=== PATIENT | female | born 1990 | race Caucasian/White ===

== ENCOUNTER 2020-11-09 17:56 | Inpatient (IN) ==
[2020-11-09] MEDS ORDERED: Lactated Ringers 1000 ml BAG 1,000 ML IV ONE (18:59)
[2020-11-09] MEDS ORDERED: Buffered Lidocaine 1% SYRIN 1 ml INTRADERM ONE (18:59)
[2020-11-09] MEDS ORDERED: Dinoprostone 10 MG VAG.SUPP VAGINAL ONE (18:59)
[2020-11-09] MEDS ORDERED: Lactated Ringers 1000 ml BAG 1,000 ML IV SCH (19:00)
[2020-11-09 21:33] LABS: Urine Benzodiazepine Screen None Detected (None Detect); Urine Cannabinoids Screen None Detected (None Detect); Urine Opiates Screen None Detected (None Detect)
[2020-11-10] MEDS ORDERED: Oxytocin in LR 20 UNITS/1,000 ML BAG IVPB SCH (10:00)
[2020-11-10 10:15] LABS: ABS Basophils 0.1 10^3/ul (0-0.2); ABS Eosinophils 0.1 10^3/ul (0-0.6); ABS Lymphocytes 2.2 10^3/ul (1.0-4.8); ABS Monocytes 0.8 10^3/ul (0-0.8); ABS Neutrophils 10.6 10^3/ul (1.5-7.7); Eosinophil % 1.1 %; Hematocrit 38 % (35-47); Hemoglobin 12.6 g/dL (12.0-16.0); Lymphocyte % 16.3 %; Mean Corpuscular HGB Conc 33 g/dL (31-36); Mean Corpuscular Hemoglobin 29 pg (27-31); Mean Corpuscular Volume 87 fL (80-97); Mean Platelet Volume 9.1 fL (7.4-10.4); Platelet Count 245 10^3/uL (150-450); Red Blood Count 4.36 10^6 /uL (3.70-4.87); Red Cell Distribution Width 14 % (10-15); White Blood Count 13.8 10^3/uL (3.5-10.8)
[2020-11-10] MEDS ORDERED: OBEPIDURAL 250 ML EPIDURAL ONE (13:40)
[2020-11-10] MEDS ORDERED: Bupivacaine 0.25% SDV PF 10 ML VIAL INJ ONE (13:42)
[2020-11-10] MEDS ORDERED: Lactated Ringers 1000 ml BAG 1,000 ML IV ONE (14:08)
[2020-11-10] MEDS ORDERED: Sodium Citrate/Citric Acid LIQ 15 ML UDC PO PRN (14:08)
[2020-11-10] MEDS ORDERED: Phenylephrine 40 mcg/mL 10mL (400mcg) SYRINGE IV PUSH PRN ×2 (14:08)
[2020-11-10] MEDS ORDERED: OBEPIDURAL 250 ML EPIDURAL SCH (15:00)
[2020-11-10] MEDS ORDERED: Lactated Ringers 1000 ml BAG 1,000 ML IV SCH (15:00)
[2020-11-10 17:11] LABS: Urine Appearance Clear; Urine Bilirubin Negative (Negative); Urine Blood 1+ (Negative); Urine Color Straw; Urine Glucose Negative (Negative); Urine Ketones Negative (Negative); Urine Nitrite Negative (Negative); Urine Protein Negative (Negative); Urine Specific Gravity 1.003 (1.002-1.030); Urine Urobilinogen Negative (Negative)
[2020-11-10 17:16] LABS: Urine Bacteria Absent (Absent); Urine Red Blood Cell Absent (Absent); Urine White Blood Cell Absent (Absent)
[2020-11-10] MEDS: Calcium Carb (TUMS) 500 mg CHEW TAB PO PRN (23:00)
[2020-11-11] MEDS: Calcium Carb (TUMS) 500 mg CHEW TAB PO PRN (06:26)
[2020-11-11] MEDS ORDERED: OBEPIDURAL 250 ML EPIDURAL ONE (06:59)
[2020-11-11] MEDS ORDERED: Lidocaine 2% w/ EPI 1:200,000 MPF 20 ML SDV VIAL ONE (07:00)
[2020-11-11] MEDS ORDERED: ceFOXitin 2 GM IVPREMIX 2 GM/50 ML BAG IVPB ONE (08:31)
[2020-11-11] MEDS ORDERED: ceFOXitin 2 GM IVPREMIX 2 GM/50 ML BAG ONE (08:34)
[2020-11-11] MEDS ORDERED: Morphine PF AMP (0.5MG/ML) 5 MG/10 ML AMP ONE (08:51)
[2020-11-11] MEDS ORDERED: Oxytocin 10 UNITS/ML 1 ML VIAL ONE (08:51)
[2020-11-11] MEDS ORDERED: Phenylephrine 40 mcg/mL 10mL (400mcg) SYRINGE ONE (08:51)
[2020-11-11] MEDS ORDERED: Ondansetron 4 mg VIAL 2 MG/ML 2 ml VIAL ONE (09:22)
[2020-11-11] MEDS ORDERED: Carboprost Tromethamine 250 mcg 1 ml VIAL ONE (09:42)
[2020-11-11] MEDS ORDERED: Midazolam 2 mg/2 ml VIAL 1 mg/ml 2 ml VIAL (2 mg) ONE (10:08)
[2020-11-11] MEDS ORDERED: Ondansetron 4 mg VIAL 2 MG/ML 2 ml VIAL IV PRN (10:31)
[2020-11-11] MEDS ORDERED: Acetaminophen IV 1 GM/100ML 1,000 MG/100 ML VIAL IVPB PRN (10:31)
[2020-11-11] MEDS ORDERED: DiMENhydriNATE IV 50 mg/ml 1 ml VIAL IV PUSH PRN (10:31)
[2020-11-11] MEDS ORDERED: diPHENhydraMINE IV 50 MG/ML 1 ml VIAL (BENADRYL) IV PRN (10:31)
[2020-11-11] MEDS ORDERED: Naloxone 0.4 mg VIAL 0.4 mg/ml 1 ml VIAL IV PRN (10:31)
[2020-11-11] MEDS ORDERED: Acetaminophen IV 1 GM/100ML 100 ML ONE (10:32)
[2020-11-11] MEDS ORDERED: Witch Hazel PAD JAR TOPICAL PRN (10:33)
[2020-11-11] MEDS ORDERED: Carboprost Tromethamine 250 mcg 1 ml VIAL IM ONE (10:33)
[2020-11-11] MEDS ORDERED: Dibucaine 1% OINT 28.35 GM TUBE PR PRN (10:33)
[2020-11-11] MEDS ORDERED: Glycerin ADULT 2.4 gm SUPP PR PRN (10:33)
[2020-11-11] MEDS ORDERED: Lactated Ringers 1000 ml BAG 1,000 ML IV SCH (11:00)
[2020-11-11] MEDS ORDERED: Oxytocin in LR 20 UNITS/1,000 ML BAG IVPB SCH (11:00)
[2020-11-11] MEDS ORDERED: Methylene Blue 0.5 % 50 MG/10 ML AMP IV ONE (12:18)
[2020-11-11 15:43] LABS: Urine Appearance Clear; Urine Bilirubin Negative (Negative); Urine Blood 2+ (Negative); Urine Color Straw; Urine Glucose Negative (Negative); Urine Ketones Negative (Negative); Urine Nitrite Negative (Negative); Urine Protein Negative (Negative); Urine Specific Gravity 1.006 (1.002-1.030); Urine Urobilinogen Negative (Negative)
[2020-11-11 15:46] LABS: Urine Bacteria Absent (Absent); Urine Red Blood Cell 2+(6-10/hpf) (Absent); Urine Squamous Epithelial Cell Present (Absent); Urine Transitional Epithelial Present (Absent); Urine White Blood Cell 1+(6-10/hpf) (Absent)
[2020-11-12 06:36] LABS: Hematocrit 30 % (35-47); Hemoglobin 9.7 g/dL (12.0-16.0); Mean Corpuscular HGB Conc 32 g/dL (31-36); Mean Corpuscular Hemoglobin 29 pg (27-31); Mean Corpuscular Volume 90 fL (80-97); Mean Platelet Volume 8.9 fL (7.4-10.4); Platelet Count 218 10^3/uL (150-450); Red Blood Count 3.38 10^6 /uL (3.70-4.87); Red Cell Distribution Width 15 % (10-15); White Blood Count 26.6 10^3/uL (3.5-10.8)
[2020-11-12 07:15] LABS: ABS Basophils 0.1 10^3/ul (0-0.2); ABS Eosinophils 0.2 10^3/ul (0-0.6); ABS Lymphocytes 2.5 10^3/ul (1.0-4.8); ABS Monocytes 1.4 10^3/ul (0-0.8); ABS Neutrophils 22.4 10^3/ul (1.5-7.7); Eosinophil % 0.6 %; Lymphocyte % 9.4 %
[2020-11-13 09:19] VITALS: BP 119/76
== END 2020-11-13 16:27 | disposition home or self-care (01) | DRG 540 ==
LOC: MCHOBOUT 17:56 → MCHOB 19:20
PROVIDERS: ADMIT Midwife; ATTEND Obstetrics & Gynecology

== ENCOUNTER 2023-09-01 17:49 | Inpatient (IN) ==
[2023-09-01] MEDS ORDERED: Buffered Lidocaine 1% SYRIN 1 ml INTRADERM ONE ×2 (19:13→20:31)
[2023-09-01] MEDS ORDERED: Promethazine INJ(RESTRICTED) 25 MG/ML 1 ml VIAL IV PRN (19:13)
[2023-09-01] MEDS ORDERED: Lidocaine 1% VIAL 10 MG/ML 30 ML VIAL INJ PRN (20:31)
[2023-09-01] MEDS ORDERED: Lactated Ringers 1000 ml BAG 1,000 ML IV ONE ×2 (20:31→20:53)
[2023-09-01] MEDS ORDERED: OBEPIDURAL (200 ML) 200 ML EPIDURAL ONE (20:51)
[2023-09-01] MEDS ORDERED: Lidocaine 1.5% EPI 1:200,000 30 ML SDV ONE (20:51)
[2023-09-01] MEDS ORDERED: Sodium Citrate/Citric Acid LIQ 15 ML UDC PO PRN (20:53)
[2023-09-01] MEDS ORDERED: Phenylephrine 40 mcg/mL 10mL (400mcg) SYRINGE IV PUSH PRN ×2 (20:53)
[2023-09-01] MEDS ORDERED: OBEPIDURAL (200 ML) 200 ML EPIDURAL SCH (21:00)
[2023-09-01] MEDS ORDERED: Lactated Ringers 1000 ml BAG 1,000 ML IV SCH ×2 (21:00)
[2023-09-01 21:02] LABS: Hematocrit 32.4 % (35-45); Hemoglobin 10.5 g/dL (11.5-14.3); Mean Corpuscular Hemoglobin 26.7 pg (27-33); Mean Corpuscular Hgb Conc 32.5 g/dL (31-36); Mean Corpuscular Volume 82.3 fL (80-97); Mean Platelet Volume 8.2 fL (7.5-11.2); Platelet Count 387 10^3/uL (150-450); Red Blood Count 3.94 10^6/uL (3.63-4.92); Red Cell Distribution Width 14.7 % (12-17); White Blood Count 24.2 10^3/uL (3.8-11.8)
[2023-09-01 21:34] LABS: ABS Basophils 0.1 10^3/uL (0.0-0.1); ABS Eosinophils 0.2 10^3/uL (0.0-0.5); ABS Lymphocytes 2.5 10^3/uL (1.0-4.8); ABS Monocytes 1.4 10^3/uL (0.0-0.9); ABS Nucleated RBC 0.02 10^3/ul; Eosinophil % 0.9 %; Lymphocyte % 10.5 %; Nucleated Red Blood Cells % 0.1 %/100WBC (0.0-0.8)
[2023-09-01 22:39] LABS: Urine Appearance Turbid; Urine Bilirubin Negative (Negative); Urine Blood 1+ (Negative); Urine Color Yellow; Urine Glucose Negative (Negative); Urine Ketones 1+ (Negative); Urine Nitrite Negative (Negative); Urine Protein Negative (Negative); Urine Specific Gravity 1.016 (1.002-1.030); Urine Urobilinogen Negative (Negative)
[2023-09-01 22:43] LABS: Urine Benzodiazepine Screen None Detected (None Detect); Urine Cannabinoids Screen None Detected (None Detect); Urine Opiates Screen None Detected (None Detect)
[2023-09-01 22:45] LABS: Urine Amorphous Crystals Present /HPF (Absent); Urine Bacteria Absent (Absent); Urine Red Blood Cell 3+(>10/hpf) (Absent); Urine Squamous Epithelial Cell Present (Absent); Urine White Blood Cell Absent (Absent)
[2023-09-02] MEDS ORDERED: Terbutaline INJ 1 MG/ML 1 ml VIAL ONE (00:18)
[2023-09-02] MEDS ORDERED: ceFAZolin 2 GM PREMIX 2 GM/50 ML BAG ONE (00:24)
[2023-09-02] MEDS ORDERED: Lidocaine 2% w/ EPI 1:200,000 MPF 20 ML SDV VIAL ONE (00:26)
[2023-09-02] MEDS ORDERED: Phenylephrine 40 mcg/mL 10mL (400mcg) SYRINGE ONE ×2 (00:46→00:56)
[2023-09-02] MEDS ORDERED: Oxytocin 10 UNITS/ML 1 ML VIAL ONE (00:47)
[2023-09-02] MEDS ORDERED: Dexamethasone IV 4 MG/ML VIAL 1 ml VIAL ONE (00:47)
[2023-09-02] MEDS ORDERED: Morphine PF AMP (0.5MG/ML) 5 MG/10 ML AMP ONE (01:15)
[2023-09-02] MEDS ORDERED: Acetaminophen IV 1 GM/100ML 1,000 MG/100 ML BAG IV PRN (01:22)
[2023-09-02] MEDS ORDERED: Metoclopramide 5 MG/ML VIAL (10 mg) IV PRN (01:22)
[2023-09-02] MEDS ORDERED: Naloxone 0.4 mg VIAL 0.4 mg/ml 1 ml VIAL IV PUSH PRN (01:22)
[2023-09-02] MEDS ORDERED: Ondansetron 4 mg VIAL 2 MG/ML 2 ml VIAL IV PRN (01:22)
[2023-09-02] MEDS ORDERED: Glycerin ADULT 2.4 gm SUPP PR PRN (01:51)
[2023-09-02] MEDS ORDERED: Witch Hazel PAD JAR TOPICAL PRN (01:51)
[2023-09-02] MEDS ORDERED: Oxytocin in LR 20,000 MILLI.UNIT/1,000 ML BAG IV SCH (01:55)
[2023-09-02] MEDS ORDERED: Lactated Ringers 1000 ml BAG 1,000 ML IV SCH ×2 (02:00→09:00)
[2023-09-03 08:15] VITALS: BP 104/58
[2023-09-03 08:52] LABS: Hematocrit 28.4 % (35-45); Hemoglobin 9.3 g/dL (11.5-14.3); Mean Corpuscular Hgb Conc 32.6 g/dL (31-36); Mean Corpuscular Volume 82.8 fL (80-97); Mean Platelet Volume 7.7 fL (7.5-11.2); Platelet Count 362 10^3/uL (150-450); Red Blood Count 3.43 10^6/uL (3.63-4.92); Red Cell Distribution Width 14.7 % (12-17); White Blood Count 22.3 10^3/uL (3.8-11.8)
[2023-09-03 09:00] LABS: ABS Basophils 0.1 10^3/uL (0.0-0.1); ABS Eosinophils 0.3 10^3/uL (0.0-0.5); ABS Monocytes 1.6 10^3/uL (0.0-0.9); ABS Neutrophils 17.3 10^3/uL (1.5-7.6); Eosinophil % 1.3 %; Lymphocyte % 13.7 %
== END 2023-09-03 14:15 | disposition home or self-care (01) | DRG 540 ==
LOC: MCHOBOUT 17:49 → MCHOB 20:43
PROVIDERS: ADMIT Obstetrics & Gynecology; ATTEND Obstetrics & Gynecology